=== PATIENT | female | born 1960 | race Two or more races ===

== ENCOUNTER 2016-06-18 20:31 | Emergency (ER) | payer MEDICARE, OTHER ==
--- NOTE | ~2016-06-18 | CT4 ---
[facility] A Service of [facility] RADIOLOGY TEXT RESULTS PATIENT: ALESSANDRO JOAQUIN LOCATION: [facility] : 56 UNIT #: [id number] AGE: [address]: Bin Manzanares MD SEX: F ORDER DR: [id number] [facility] [address] [place], [place] [address] [id number] MR#: [id number] #: [id number] NAME: ALESSANDRO JOAQUIN : 1960 SEX: F STUDY DATE/TIME: 06/18/2016 23:56 UNIT: [facility] ROOM: STUDY DESCRIPTION: CT Abd and Pelv Wo Cont Attending Physician: Bin Manzanares Ordering Physician: Ed Sekou Waterman M.D. Primary Care Physician: Arron Weldon M.D. MEDICAL IMAGING REPORT This report is preliminary unless electronic signature is present EXAM CT abdomen and pelvis without contrast HISTORY Hurting all over her body, fever, [id number] back pain since last night. This CT exam was performed with one or more of the following radiation dose reduction techniques: automatic exposure control, adjustment of mA and/or kV according to patient size, and iterative reconstruction. FINDINGS Axial images performed through the abdomen and pelvis without contrast. Multiplanar reconstructed images reviewed at reviewed at a workstation. ABDOMEN: Lung bases demonstrates mild interstitial prominence and some ground-glass opacities could represent some developing pneumonitis or edema. No effusions. Cardiomegaly. Liver, spleen, gallbladder, pancreas, kidneys and adrenal glands are unremarkable. No free air or free fluid. Visualized GI tract unremarkable except for a moderate amount of colonic stool. Retroperitoneum unremarkable. The patient does have mild hepatomegaly. PELVIS: The bladder, uterus and adnexa appear normal. Osseous structures and soft tissues unremarkable. IMPRESSION 1. Mild interstitial prominence of ground-glass opacities in both lung bases could be on the basis of atelectasis but could also be seen with developing pneumonitis possibly representing edema. Mild cardiomegaly. 2. No acute intraabdominal or intrapelvic pathology. [facility] A Service of [facility] RADIOLOGY TEXT RESULTS PATIENT: ALESSANDRO JOAQUIN LOCATION: [facility] : 56 UNIT #: [id number] AGE: [address]: Bin Manzanares MD SEX: F ORDER DR: Dictated by... Lane You M.D. THIS IS AN ELECTRONICALLY VERIFIED REPORT Lane You M.D. at 06/19/2016 10:06 PM JOJO/kinsey TD: 06/19/2016 00:42 JOB #: [id number] MEDICAL IMAGING REPORT Page 1 of 1 COPY
[2016-06-18 21:25] LABS: BASOPHIL# 0.1 X10e3 (0-0.3); BASOPHIL% 0.5 % (0-2.5); EOSINOPHIL# 0.1 X10e3 (0-0.7); EOSINOPHIL% 0.6 % (0.0-7.0); HEMATOCRIT 37.3 % (35.0-45.0); HEMOGLOBIN 12.8 gm/dL (12.0-16.0); LYMPHOCYTE# 2.1 X10e3 (1.0-3.5); LYMPHOCYTE% 16.8 % (17.0-45.0); MEAN CELL VOLUME 75.2 FL (83-96); MEAN CORPUSCULAR HEMOGLOBIN 25.9 PG (28-34); MEAN CORPUSCULAR HGB CONC 34.4 g/dL (30-36); MONOCYTE# 0.5 X10e3 (0-1.0); MONOCYTE% 4.4 % (3.0-12.0); NEUTROPHIL# 9.6 X10e3 (1.5-7.1); NEUTROPHIL% 77.7 % (40-75); PLATELET COUNT 203 X10e3 (140-420); RED BLOOD COUNT 4.96 X10e (3.90-5.30); WHITE BLOOD COUNT 12.4 X10e3 (4.0-10.5)
[2016-06-18 21:26] LABS: DIFF IND NO
[2016-06-18 21:48] LABS: CALCIUM SERUM 9.2 mg/dL (8.4-10.2); CREATININE SERUM 0.6 mg/dL (0.6-1.4); GLOM FILT RATE Estimated 101.2 mL/min (>60); POTASSIUM 4.2 mmol/L (3.5-5.1)
[2016-06-18 22:56] LABS: URINE SOURCE CLEAN CATCH
[2016-06-18 23:03] LABS: URINE APPEARANCE CLEAR; URINE BILIRUBIN NEG (NEG); URINE BLOOD NEG (NEG); URINE COLOR YELLOW; URINE GLUCOSE 250 MG/DL (NEG); URINE KETONE TRACE (NEG); URINE LEUKOCYTE ESTERASE TRACE (NEG); URINE NITRATE NEG (NEG); URINE PH 8.5 (5-8); URINE PROTEIN 2+ (NEG); URINE SPECIFIC GRAVITY 1.015 (1.003-1.035)
[2016-06-18 23:07] LABS: CULTURE INDICATED? YES; U HYALINE CASTS AUWI 0-2 /[LPF]; URBCS1 AUWI 0-2 /[HPF] (0-2); URINE BACTERIA AUWI NEG (NEGATIVE); URINE SQUAMOUS EPITHELIAL CELL OCC /[HPF]
[2016-06-18 23:12] LABS: INFLUENZA A NEG (NEG); INFLUENZA B NEG (NEG)
== END 2016-06-19 11:44 | disposition home or self-care (01) ==
LOC: CED 20:31
PROVIDERS: Emergency Medicine
DX: J02.0 Streptococcal pharyngitis (principal); M54.5 Low back pain; I10 Essential (primary) hypertension; E11.9 Type 2 diabetes mellitus without complications
CPT/HCPCS: 74176; 80048; 81003; 85025; 87086; 87088; 87186; 87804; 87880; 96361; 96374; 96375; 99284; J1885; J2405